=== PATIENT | female | born 1985 | race Caucasian/White ===

== ENCOUNTER → 2018-11-15 | Outpatient (CLI) | payer MEDICAID | END | disposition home or self-care (01) | LOC: RAD 08:38 | PROVIDERS: ATTEND Nurse Practitioner Women's Health | DX: O26.899 Other specified pregnancy related conditions, unspecified trimester (principal); Z3A.00 Weeks of gestation of pregnancy not specified; R76.11 Nonspecific reaction to tuberculin skin test without active tuberculosis | CPT/HCPCS: 71045 ==

== ENCOUNTER 2019-01-20 10:12 | Inpatient (IN) | payer MEDICAID ==
[~2019-01-20] VITALS: Ht 139.7 cm; Wt 65.4 kg
[~2019-01-20 10:12] MED LIST: HETASTARCH 6% NACL 500 ML BAG ONE
[2019-01-20 10:17] VITALS: BP 101/52; PULSE 83; RESP 17; Ht 139.7 cm; Wt 65.4 kg
--- NOTE | 2019-01-20 11:25 | TRIAGE ---
OB Triage Datetime Report Generated by CPN: 01/20/2019 11:24 Datetime: 01/20/2019 11:20 Labor Evaluation Frequency: x5 Monitor Mode: External Duration (sec)2399: 80-120 Quality: Mild Pattern: Normal: <= 5 Contractions in 10 Minutes Resting Tone [employer]: Relaxed Heart Rate FHR Baseline Rate: 145 Monitor Mode: External US Variability: Moderate 6-25 bpm Accelerations: 15X15 Decelerations: None Category: Category I Datetime: 01/20/2019 10:31 Assessment Type: Triage Maternal Assessment Level of Consciousness: Fully Conscious DTR's/Clonus: DTRs 2+; No Clonus Headache: Denies Blurred Vision: No Respiratory Effort: Unlabored; Regular Rhythm; Equal Expansion Breath Sounds, Left: Clear and Equal Breath Sounds, Right: Clear and Equal Nausea/Vomiting: Denies RUQ Epigastric Pain: Denies Lower Extremities Edema: None Degree: None Upper Extremities Edema: None Facial Edema: None Fall Risk Assessment History of Falling: (0) No Secondary Diagnosis: (0) No Ambulatory Aid: (0) Bedrest/Nurse Assist IV Therapy: (0) No Gait: (0) Normal/Bedrest/Immobile Mental Status: (0) Oriented to Own Ability Fall Score: 0 Fall Risk Score Definition: No Risk: No action required Datetime: 01/20/2019 10:28 Vaginal Exam Dilatation (cms): 0.5 Station: -3 Exam By: wliu Datetime: 01/20/2019 10:14 Time of Arrival: 01/20/2019 10:07 EGA: 37.4 Arrived By: Ambulatory Arrived From: [facility] Office Chief Complaint: Pt. to ob triage from md office with referral form for r/o rom Movement: Present Contractions: Irregular Rupture of Membranes: Unsure Vaginal Bleeding: None Vaginal Discharge: Denies Recent Sexual Intercouse: Denies Abdominal Trauma: Not Applicable Patient Complaints: Other Time Provider Notified: 01/20/2019 11:16 Provider Notified: Initial Plan: r/o rom
[2019-01-20] MEDS ORDERED: PREN-93 PO (11:37)
[2019-01-20] MEDS ORDERED: METHYLERGONOVINE 0.2 MG INJ IM PRN ×2 (12:00→22:30)
[2019-01-20] MEDS ORDERED: OXYTOCIN 30 UNITS/LR 500 ML IV SCH (12:00)
[2019-01-20] MEDS ORDERED: CARBOPROST 250 MCG INJ IM PRN ×2 (12:00→22:30)
[2019-01-20] MEDS ORDERED: CEFAZOLIN 2 GM/50 ML (PMX) 50 ML IVPB SCH (12:00)
[2019-01-20] MEDS ORDERED: OXYTOCIN 30 UNITS/LR 500 ML IV PRN ×2 (12:00→22:30)
[2019-01-20] MEDS ORDERED: MISOPROSTOL 200 MCG TAB PR PRN ×2 (12:00→22:30)
[2019-01-20] MEDS: LACTATED RINGER'S 1,000 ML IV SCH ×2 (13:03→15:02)
--- NOTE | 2019-01-20 16:57 | PREAC ---
Date/Time of Note Date/Time of Note DATE: 01/20/19 TIME: 16:55 Anesthesia Eval and Record Evaluation Time Pre-Procedure Interview DATE: 01/20/19 TIME: 16:55 Age 33 Sex female NPO: 8 hrs Preoperative diagnosis Repeat in labor Planned procedure Past Medical History Past Medical History: Includes Heme: Anemia : : (2), Para: (1), Gestational age: (37) Surgery & Anesthesia Issues No known issue Meds Anticoagulation: No Beta Key within 24 hr: No Reason Beta Key not given: Pt. not on B-Key Reported Medications Vit No.124/Iron/FA ( Vitamin Tablet) 1 Each Tablet, 1 EACH PO DAILY, TAB 01/20/19 Current Medications Cefazolin Sodium/ Dextrose 50 ml @ 100 mls/hr ONCE IVPB ; Start 01/20/19 at 12:00 Oxytocin/Lactated Ringer's 500 ml @ 125 mls/hr POST IV ; Start 01/20/19 at 12:00 Oxytocin/Lactated Ringer's 500 ml @ 0 mls/hr ONCE PRN IV .VAGINAL BLEEDING; Start 01/20/19 at 12:00 Methylergonovine Maleate (Methergine) 0.2 mg ONCE PRN IM .VAGINAL BLEEDING; Start 01/20/19 at 12:00 Carboprost Tromethamine (Hemabate) 250 mcg ONCE PRN IM .VAGINAL BLEEDING; Start 01/20/19 at 12:00 Misoprostol (Cytotec) 1,000 mcg ONCE PRN RI .VAGINAL BLEEDING; Start 01/20/19 at 12:00 Lactated Ringer's 1,000 ml @ 125 mls/hr Q8H IV Last administered on 01/20/19at 15:02; Admin Dose 125 MLS/HR; Start 01/20/19 at 11:44 Meds reviewed: Yes Allergies Coded Allergies: No Known Allergy (Unverified , 10/26/13) Allergies Reviewed: Yes Labs/Studies Labs Reviewed: Reviewed by anesthesiologist Result Diagram: 01/20/19 1140 Laboratory Tests 01/20/19 11:40 Blood Bank Test 01/20/19 11:40 Antibody Screen NEGATIVE Blood Type O POSITIVE Rh Immune Globulin Candidate NO test: Positive Studies: ECG (n/a), CXR (n/a) Pre-procedure Exam Last vitals Vital Signs Date Temp Pulse Resp B/P (MAP) Pulse Ox O2 O2 Flow FiO2 Time Delivery Rate 01/20/19 98.6 83 17 101/52 10:17 (68) Airway: Adequate mouth opening, Adequate thyromental dist Mallampati: Mallampati II Teeth: Normal Lung: Normal Heart: Normal ASA Physical Status ASA physical status: 2 Emergency: None Planned Anesthetic Neuraxial: Spinal Planned Pain Management Sub-arachniod narcotics, Parenteral pain med Pre-operative Attestations Prior to commencing anesthesia and surgery, the patient was re-evaluated, there was verification of: *The patient's identity *The results of appropriate recent lab work and preoperative vital signs *The above evaluation not changing prior to induction *Anesthetic plan, risk benefits, alternative and complications discussed with patient/family; questions answered; patient/family understands, accepts and wishes to proceed. REESE DONAHUE MD January 20, 2019 16:56
[2019-01-20] MEDS ORDERED: CITRIC ACID/NA CITRATE 30 ML CUP PO ONE (17:00)
[2019-01-20] MEDS ORDERED: ONDANSETRON 4 MG INJ IV ONE (17:00)
[2019-01-20] MEDS ORDERED: OXYTOCIN 10 UNIT INJ ONE (17:41)
[2019-01-20] MEDS ORDERED: PHENYLephrine (100 MCG/ML) 10ML SYG ONE (17:41)
[2019-01-20] MEDS ORDERED: morphine SULFATE/PF (10 MG/10 ML) INJ ONE (17:41)
[2019-01-20] MEDS ORDERED: AZITHROMYCIN 500MG/NS (PMX) 250 ML ONE (18:02)
[2019-01-20] MEDS ORDERED: DEXAMETHASONE 4 MG/ML 1 ML INJ ONE (18:19)
[2019-01-20] MEDS ORDERED: METOCLOPRAMIDE 10 MG INJ ONE (18:20)
[2019-01-20] MEDS ORDERED: KETOROLAC 30 MG INJ ONE (18:20)
--- NOTE | 2019-01-20 18:41 | HP ---
Date/Time of Note Date/Time of Note DATE: 01/20/19 TIME: 18:37 OB - History Hx of Present Free Text/Dictation 33-year-old female 1 para 0 at 37 weeks and 4 days gestation admitted complaining of onset of a ruptured membrane at 8 AM and onset of uterine contractions at the same time Last Menstrual Period: May 10, 2018 Estimated Due Date: February 06, 2019 : 2 Para: 1 Care: Good Care Ultrasounds: Normal mid trimester US Obstetrical Complications: None Medical Complications: None Past Family/Social History * Past Medical, Surgical, Family and Obstetric Histories reviewed from chart. Blood Type: O+ Rubella: immune RPR/VDRL: Negative GBS Status: Negative HBsAG: Negative OB Admission Exam Vital Signs Vital Signs Vital Signs Date Temp Pulse Resp B/P (MAP) Pulse Ox O2 O2 Flow FiO2 Time Delivery Rate 01/20/19 98.6 83 17 101/52 10:17 (68) Physical Exam HEENT: WNL Heart: Rhythm Normal Lungs: Clear, Equal Abdomen: WNL Extremities: Normal Reflexes: Normal Cervical Dilatation: Fingertip Effacement: 0% Station: -3 Membranes: Ruptured (Confirmed by positive ROM plus test) Heart Rate: 140's Accelerations: Accelerations Present Decelerations: No Decelerations Varibility: Marked Contractions on Admission: >10 Minutes Apart Last 72 hours Lab Results CBC & BMP 01/20/19 11:40 OB Assessment/Plan Reason for admission: rupture of membranes Other Assessment: 37+ weeks gestation Spontaneous rupture of membrane Previous x1 Other plan: Proceed with repeat IFEOMA PERALTA MD January 20, 2019 18:41
[2019-01-20] MEDS ORDERED: ACETAMINOPHEN 500 MG TAB PO STA (18:43)
[2019-01-20] MEDS ORDERED: KETOROLAC 30 MG INJ IV STA (18:43)
--- NOTE | 2019-01-20 18:43 | OPR ---
Operative Report Planned Procedure Procedure date January 20, 2019 Procedure(s) Repeat delivery Performed by see signature line Alteration Tailor Apprentice: ATIYA FLORES MD Anesthesiologist: REESE DONAHUE MD Pre-procedure diagnosis 37+ weeks gestation Previous x1 Labor pains and a spontaneous rupture of membrane [id number] Anesthesia Type: [id number] spinal Post-Procedure Post-procedure diagnosis Status post repeat Findings Live Baby in TIFFANI position Clear amniotic fluid Normal-appearing right and left fallopian tubes and ovary Bowel adhesion to posterior uterine wall Estimated Blood Loss: 600 - 700 mls Specimen(s) none Grafts/Implant(s) none Complication(s) none Disposition: PACU Procedure Description Under satisfactory anaesthesia a Pfannenstiel incision was made two fingerbreadth above and parallel to the symphysis of pubis around the previous scar and previous scar was removed Incision was extended laterally to the border of the Recti muscles on either sides. Incision was carried down with sharp and blunt dissection until fascia w as reached. Anterior Recti muscle fascia was incised in mid portion and incision extended laterally to the border of skin incision. Fascia was mobilized from muscle superiorly and Recti muscles were from midline using sharp and blunt dissection. Peritoneum was visualized; Avoiding bowel and bladder it was incised . Incision was extended superiorly and inferiorly. Bladder blade was placed. Posterior peritoneum covering the lower segment of the uterus and lower segment of the uterus were incised.Low transverse uterine incision was made on lower segment of the uterus. Incision extended laterally to the border of Round Lig. on either sides and baby was delivered from OT. position . Amniotic fluid appeared clear. Cord blood was obtained and cord had 3 vessels . Placenta was delivered spontaneously and appeared intact and complete. Intrauterine cavity was rubbed with a laparotomy sponge. Uterine incision was closed in 2 layers using running stitches of No1 Monocryl. Hemostasis appeared secure. Ovaries and Fallopian tubes were within normal limits. Announcing needle, lap sponge and instrument count to be correct abdomen was closed in layers as follows: Peritoneum and Recti muscles with running stitches of 2-0 Vicryl. Fascia with running stitch of No 1 PDS. Subcutaneous tissue with running stitches of 2-0 Monocryl and skin was closed using cintia. Patient tolerated the procedure well and was transferred to [facility] in good condition. IFEOMA PERALTA MD January 20, 2019 18:43
--- NOTE | 2019-01-20 18:45 | PAC ---
Date/Time of Note Date/Time of Note DATE: 01/20/19 TIME: 18:44 Post-Anesthesia Notes Post-Anesthesia Note Last documented vital signs Vital Signs Date Temp Pulse Resp B/P (MAP) Pulse Ox O2 O2 Flow FiO2 Time Delivery Rate 01/20/19 97.6 83 17 101/52 99 room air 18:47 (68) Activity: WNL Respiratory function: WNL Cardiovascular function: WNL Mental status: Baseline Pain reasonably controlled: Yes Hydration appropriate: Yes Nausea/Vomiting absent: Yes REESE DONAHUE MD January 20, 2019 18:45
[2019-01-20 21:25] VITALS: BP 108/58; PULSE 86; RESP 19
[2019-01-20] MEDS ORDERED: LACTATED RINGER'S 1,000 ML IV SCH (22:24)
[2019-01-20] MEDS ORDERED: HYDROCODONE/APAP (5/325) TAB PO PRN ×2 (22:30→23:00)
[2019-01-20] MEDS ORDERED: OXYCODONE/ACETAMINOPHEN (5/325) TAB PO PRN (22:30)
[2019-01-20] MEDS ORDERED: NA PHOSPHATE/BIPHOS 133 ML ENEMA PR PRN (22:30)
[2019-01-20] MEDS: IBUPROFEN 800 MG TAB PO SCH (22:30)
[2019-01-20] MEDS ORDERED: LANOLIN HPA 1 PKT TOP PRN (22:30)
[2019-01-20] MEDS: SENNA/DOCUSATE NA (8.6MG/50MG) TAB PO SCH (22:30)
[2019-01-20] MEDS ORDERED: HYDROmorphONE 0.5 MG/0.5 ML SYG IV PRN ×2 (23:00)
[2019-01-20] MEDS ORDERED: ONDANSETRON 4 MG INJ IV PRN (23:00)
[2019-01-20] MEDS ORDERED: KETOROLAC 30 MG INJ IV PRN (23:00)
[2019-01-20] MEDS ORDERED: morphine 2 MG INJ IV PRN ×2 (23:00)
[2019-01-20] MEDS ORDERED: NALOXONE (0.4 MG/ML) INJ IV PRN (23:00)
[2019-01-20] MEDS ORDERED: NALBUPHINE HCL (10 MG/1 ML) INJ IV PRN (23:00)
[2019-01-20] MEDS ORDERED: DIPHENHYDRAMINE 50 MG INJ IV PRN (23:00)
[2019-01-20] MEDS ORDERED: ACETAMINOPHEN 500 MG TAB PO PRN (23:00)
[2019-01-21] VITALS: BP 104/61; PULSE 75; RESP 19
[2019-01-21] MEDS: CLINDAMYCIN 300 MG CAP PO SCH ×4 (00:20→18:03)
[2019-01-21] MEDS: CEFAZOLIN 2 GM/50 ML (PMX) 50 ML IVPB SCH ×3 (00:21→17:59)
[2019-01-21] MEDS: IBUPROFEN 800 MG TAB PO SCH ×3 (06:00→22:28)
[2019-01-21 08:15] VITALS: BP 84/51; PULSE 91; RESP 14
[2019-01-21] MEDS: SENNA/DOCUSATE NA (8.6MG/50MG) TAB PO SCH ×2 (09:51→20:55)
[2019-01-21] MEDS ORDERED: BISACODYL 10 MG SUPP PR ONE ×2 (10:00→18:30)
[2019-01-21] MEDS: LACTATED RINGER'S 1,000 ML IV SCH (13:05)
[2019-01-21 13:16] VITALS: BP 85/48; PULSE 88; RESP 15
[2019-01-21] MEDS ORDERED: LACTATED RINGER'S 1,000 ML IV SCH (13:30)
[2019-01-21 15:59] VITALS: BP 86/43; PULSE 90; RESP 14
[2019-01-21 16:09] VITALS: BP 113/62; PULSE 95; RESP 16
--- NOTE | 2019-01-21 16:30 | PN ---
Date/Time of Note Date/Time of Note DATE: 01/21/19 TIME: 16:28 Assessment/Plan VTE Prophylaxis VTE Prophylaxis Intervention: ambulation Lines/Catheters IV Catheter Type (from Nrsg): Peripheral IV Assessment/Plan Assessment/Plan Status post postop day #1 Advance diet and ambulate Continue to monitor vital signs Subjective 24 Hr Interval Summary No bowel movements but passing flatus Constitutional: no complaints, improved, ambulates, BM, flatus, urine output Pain Control: well controlled Exam/Review of Systems Vital Signs Vitals Vital Signs Date Temp Pulse Resp B/P (MAP) Pulse Ox O2 O2 Flow FiO2 Time Delivery Rate 01/21/19 95 16 113/62 96 16:09 (79) 01/21/19 99.3 Room Air 15:59 Intake and Output 01/20/19 01/20/19 01/21/19 1515:00 23:00 07:00 IntakeIntake Total 2375 ml 1125 ml OutputOutput Total 400 ml 2200 ml 900 ml BalanceBalance -400 ml 175 ml 225 ml Exam Free Text/Dictation Abdomen is soft bowel sounds present and abdomen is not distended Incision is covered Constitutional: alert, oriented, well developed Psych: no complaints, nl mood/affect Head: normocephalic, atraumatic Eyes: nl conjunctiva, EOMI, nl lids, nl sclera ENMT: nl external ears & nose, nl lips & teeth, nl nasal mucosa & septum, muco sa pink and moist Neck: supple, non-tender Respiratory: clear to auscultation, normal air movement Cardiovascular: regular rate and rhythm, nl pulses Gastrointestinal: soft, nl liver, spleen, non-tender Musculoskeletal: nl extremities to inspection, nl gait and stance Extremities: normal pulses Neurological: ELECTRICAL ENGINEERING TEACHER II-XII intact, nl mental status, nl speech, nl strength Skin: nl turgor, rash or lesions Lymph: nl lymph nodes Results Result Diagram: 01/21/19 0739 IFEOMA PERALTA MD January 21, 2019 16:30
[2019-01-21 19:45] VITALS: BP 102/47; PULSE 75; RESP 18
[2019-01-22] MEDS: CLINDAMYCIN 300 MG CAP PO SCH ×5 (00:38→23:13)
[2019-01-22 03:35] VITALS: BP 91/50; PULSE 72; RESP 18
[2019-01-22] MEDS: IBUPROFEN 800 MG TAB PO SCH ×3 (06:03→23:13)
[2019-01-22 08:30] VITALS: BP 94/56; PULSE 78; RESP 16
[2019-01-22] MEDS: SENNA/DOCUSATE NA (8.6MG/50MG) TAB PO SCH ×2 (09:08→23:13)
[2019-01-22 15:27] VITALS: BP 108/67; PULSE 66; RESP 17
--- NOTE | 2019-01-22 16:01 | DS ---
Date/Time of Note Date/Time of Note Home today or next DATE: 01/22/19 TIME: 15:49 Obstetrical Discharge Record Final Diagnosis Final Diagnosis: Term delivered Other Final Diagnosis Status post Section Section: Repeat Condition on Discharge Physical Assessment Last Vitals: See nurse's notes Voiding: Yes Bowel Movement: Yes Breast: Soft, non-tender, Filling Fundus: Firm Abdomen and Incision: Abdomen is soft with present bowel sounds Incision is healing well without induration and or erythema Calf Tenderness: No Patient Condition: Good IFEOMA PERALTA MD January 22, 2019 16:00
--- NOTE | 2019-01-22 16:02 | DS ---
Date/Time of Note Date/Time of Note DATE: 01/22/19 TIME: 16:01 Discharge Summary Admission/Discharge Info Admit Date/Time January 20, 2019 at 11:20 Discharge Date/Time January 22 or January [id number] Discharge Diagnosis Status post Patient Condition: Good Procedures Repeat section Hx of Present Illness 33-year-old female had a repeat section Hospital Course Uncomplicated Home Meds Reported Medications Vit No.124/Iron/FA ( Vitamin Tablet) 1 Each Tablet, 1 EACH PO DAILY, TAB 01/20/19 Follow-up Plan To 3 days in clinic for staple removal Primary Care Provider Not On Staff Doctor Time spent on discharge: > 30 minutes Pending Labs Laboratory Tests Test 01/22/19 06:26 White Blood Count 10.1 10^3/ul (4.8-10.8) Red Blood Count 3.23 10^6/ul (4.20-5.40) Hemoglobin 9.3 g/dl (12.0-16.0) Hematocrit 28.1 % (37.0-47.0) Mean Corpuscular Volume 87.0 fl (82.0-101.0) Mean Corpuscular Hemoglobin 28.8 pg (29.0-33.0) Mean Corpuscular Hemoglobin Concent 33.1 g/dl (32.0-37.0) Red Cell Distribution Width 13.8 % (11.5-14.5) Platelet Count 270 10^3/UL (140-415) Mean Platelet Volume 9.7 fl (7.4-10.4) Immature Granulocytes % 0.800 % (0.001-0.429) Neutrophils % 75.4 % (39.0-77.0) Lymphocytes % 15.1 % (15.0-51.0) Monocytes % 7.4 % (0.0-11.0) Eosinophils % 1.1 % (0.0-7.0) Basophils % 0.2 % (0.0-2.0) Nucleated Red Blood Cells % 0.0 /100WBC (0.0-0.0) Immature Granulocytes # 0.080 10^3/ul (0.0-0.031) Neutrophils # 7.6 10^3/ul (1.6-7.5) Lymphocytes # 1.5 10^3/ul (0.8-2.9) Monocytes # 0.8 10^3/ul (0.3-0.9) Eosinophils # 0.1 10^3/ul (0.0-0.5) Basophils # 0.0 10^3/ul (0.0-0.1) Nucleated Red Blood Cells # 0.0 10^3/ul (0.0-0.0) IFEOMA PERALTA MD January 22, 2019 16:02
--- NOTE | 2019-01-22 16:07 | PD.PPDC ---
SORT LINE WORKER Discharge Instruction Provider Information Physician Information 33-year-old female has repeat Diagnosis [id number] Final Diagnosis: Cjxfb8p Status post Condition [id number] Patient Condition: Zxzhl2i Good Diet Iqnhi8Fc Diet: Fkibf9b Resume Regular Diet Activity/Restrictions [id number] Activity: Ifyna2j May Shower Qurrm9Hq Restrictions: Mbgkl0d No Exercising No Lifting Nothing in the Vagina Wound/Drain Care Instructions [id number] Wound/Drain Care Instructions: Luglk0l Keep clean and dry Follow-up Follow-up with Physician: 2, 3, Day/Days (For staple removal) Return to clinic for [id number] ASSEMBLER FISHING FLOATS Instructions: Ugtqs7y Fever greater than 101 Chills Qermb9Qs OB Instructions: Zlnus3d Breast Tenderness Depression Comment: Pelvic rest and no hard activity for 2 months Ifmxn7Rf Surgical Instructions: Hnziv2f Incisional Drainage Incisional Redness IFEOMA PERALTA MD January 22, 2019 16:07
[2019-01-22] MEDS ORDERED: ACET325T33 PO (16:10)
[2019-01-22] MEDS ORDERED: IBUP800T48 PO (16:10)
[2019-01-22] MEDS ORDERED: ACETAMINOPHEN 325 MG TAB PO PRN (16:30)
[2019-01-22 20:00] VITALS: BP 90/51; PULSE 80; RESP 18
[2019-01-23 04:00] VITALS: BP 97/53; PULSE 66; RESP 20
[2019-01-23] MEDS: IBUPROFEN 800 MG TAB PO SCH ×2 (06:33→13:39)
[2019-01-23] MEDS: CLINDAMYCIN 300 MG CAP PO SCH ×2 (06:33→12:15)
[2019-01-23 08:00] VITALS: BP 105/56; PULSE 67; RESP 20
[2019-01-23] MEDS ORDERED: MEASLES,MUMPS,RUBELLA VACCINE INJ SC* ONE (09:00)
[2019-01-23] MEDS: SENNA/DOCUSATE NA (8.6MG/50MG) TAB PO SCH (09:00)
[2019-01-23] MEDS ORDERED: DIPHTH/TET/ACEL PERTUSS (ADULT) 0.5 ML VIAL IM* ONE (09:00)
--- NOTE | 2019-01-24 16:15 | DELSUM ---
Delivery Summary A-C Datetime Report Generated by CPN: 01/24/2019 16:14 DELIVERY PERSONNEL Consulting Intern: Susanaemancarlo, Leana MATERNAL INFORMATION Delivery Anesthesia: Spinal Medications in Delivery: SEE ANETHESIA RECORD Delivery QBL (ml): 800 Placenta Cultured: No Maternal Complications: None LABOR SUMMARY EDC: 02/06/2019 00:00 No. Babies in Womb: 1 Attempted: No Labor Anesthesia: None LABOR INFORMATION Reason for Induction: Not Applicable Onset of Labor: 01/20/2019 08:00 Oxytocin: N/A Group B Beta Strep: Negative Antibiotics # of Doses: 1 Antibiotics Time of Last Dose: 01/20/2019 17:50 Steroids Given: None Reason Steroids Not Administered: Not Applicable MEMBRANES Membranes Rupture Method: Spontaneous Rupture of Membranes: 01/20/2019 08:00 Length of Rupture (hr): 10.12 Amniotic Fluid Color: Clear Amniotic Fluid Amount: Moderate Amniotic Fluid Odor: None STAGES OF LABOR Stage 3 hr: 0 Stage 3 min: 1 Total Time in Labor hr: 10 Total Time in Labor min: 8 CSECTION DELIVERY Primary Indication: Repeat Elective Secondary Indication: N/A CSection Urgency: Elective CSection Incidence: Repeat Labor: Labor Elective: Elective CSection Incision: Lower Uterine Transverse BABY A INFORMATION Delivery Date/Time: 01/20/2019 18:07 Method of Delivery: Born in Route : No : N/A Forceps: N/A Vacuum Extraction: Successful Shoulder Dystocia : No ASSISTED DELIVERY BABY A Indication for Assisted Delivery: R C/S Catheter Prior to Procedure: Yes Vacuum Number of Pulls: 1 Vacuum Number of PopOffs: 0 Vacuum Investigative Research Specialist: KIWI Vacuum/Forceps Comment: KIWI SHOULDER DYSTOCIA BABY A Infant Delivery Date/Time: 01/20/2019 18:07 PRESENTATION/POSITION BABY A Presentation: Cephalic Cephalic Presentation: Vertex Breech Presentation: N/A PLACENTA INFORMATION BABY A Placenta Delivery Time : 01/20/2019 18:08 Placenta Method of Delivery: Manual Removal Placenta Status: Delivered SCORES BABY A Heart Rate 1 min: >100 bpm Resp Effort 1 min: Good Cry Reflex Irritability 1 min: Cough/Sneeze/Pulls Away Muscle Tone 1 min: Active Motion Color 1 min: Body [place], Extremit Blue Resuscitation Effort 1 min: Tactile Stimulation SCORE 1 MIN: 9 Heart Rate 5 min: >100 bpm Resp Effort 5 min: Good Cry Reflex Irritability 5 min: Cough/Sneeze/Pulls Away Muscle Tone 5 min: Active Motion Color 5 min: Body [place], Extremit Blue Resuscitation Effort 5 min: Tactile Stimulation SCORE 5 MIN: 9 INFORMATION BABY A Gestational Age at Delivery: 37.4 Gestational Status: Early Term- 37- 38.6 Weeks Outcome : Liveborn Infant Condition : Stable Infant Sex: Male IDENTIFICATION/MEDS BABY A ID Band Number: [id number] ID Band Location: Right Leg; Left Arm Sensor Applied: Yes Sensor Number: [id number] Sensor Location : Right Leg; Left Arm Vitamin K Given : Not Given Erythromycin Given: Not Given WEIGHT/LENGTH BABY A Birthweight (gm): 3410 Weight (lb): 7 Infant Weight (oz): 8 Length (in): 20.00 Infant Length (cm): 50.80 CORD INFORMATION BABY A No. Cord Vessels: 3 Nuchal Cord : N/A Cord Blood Taken: Yes Infant Suction: Mouth; Nose ASSESSMENT BABY A Infant Complications: None Physical Findings at Delivery: Within Normal Limits Infant Respirations: Appears Normal Cooling Tower Operator/ALS Called : Yes Care By: RT/RN Transferred To: Remains with Mother
== END 2019-01-23 16:14 | disposition home or self-care (01) | DRG 788 ==
LOC: L-D 10:12 → OBT 10:12 → L-D 11:20 → OBT 11:20 → L-D 12:47 → PP1 21:23
PROVIDERS: ADMIT Obstetrics & Gynecology; ATTEND Obstetrics & Gynecology
PROC: 10D00Z1 Extraction of Products of Conception, Low, Open Approach (ICD-10-PCS; principal; 2019-01-20)
DX: O65.5 Obstructed labor due to abnormality of maternal pelvic organs (principal); O34.211 Maternal care for low transverse scar from previous cesarean delivery; Z3A.37 37 weeks gestation of pregnancy; Z37.0 Single live birth
CPT/HCPCS: 84112; 85025; 85610; 85730; 86592; 86850; 86900; 86901; 90715; 99464; G0463; J0456; J0690; J1100; J1885; J2274; J2370; J2405; J2590; J2765; J7120